=== PATIENT | female | born 1995 | race Hispanic/Latino ===

== ENCOUNTER 2018-05-03 19:53 | Emergency (ER) | payer SELFPAY ==
[2018-05-03] MEDS ORDERED: AMOXicillin 250 MG CAP ONE (20:25)
[2018-05-03] MEDS ORDERED: HYDROcodone/Acetaminophen 5/325 mg Tablet ONE (20:25)
[2018-05-03] MEDS ORDERED: cefTRIAXone\\ROCEPHIN 1 GM VIAL ONE (20:25)
== END 2018-05-03 20:41 | disposition home or self-care (01) ==
LOC: BURERS 19:53
DX: K04.7 Periapical abscess without sinus (principal)
CPT/HCPCS: 96372; J0696